=== PATIENT | male | born 1955 | race Caucasian/White ===

== ENCOUNTER 2017-11-13 13:20 | Emergency (ER) | payer BC ==
--- NOTE | 2017-11-13 13:31 | PDOC ---
History of Present Illness - General Stated Complaint: PAIN Time Seen by Provider: 11/13/17 13:25 History Source: Patient - History of Present Illness Initial Comments: 11/13/17 13:41 61 y.o. male with a PMH of nephrolithiasis and chronic back pain presents with acute onset of L sided groin pain. Patient notes he went to urinate this morning @ 7 a.m. and felt a sharp pain in his L groin. Pain is constant, 10/10 , sharp and cramping and radiates to his groin. Patient notes he has been non- adherent to his Flomax medication not taking it daily. Denies any fevers/chills , hematuria/dysuria, diarrhea/constipation or scrotal/penile pain. Tolerating PO intake. Allergy: Erythromycin Surgical: B/L Hip Replacement Social: denies cigarettes, denies alcohol, denies recreational drugs PMD: Dr. Braswell Past History - Past Medical History Allergies/Adverse Reactions: Allergies Allergy/AdvReac Type Severity Reaction Status Date / Time azithromycin [From Zithromax] AdvReac Severe Nausea Verified 11/13/17 13:34 Home Medications: Ambulatory Orders Ibuprofen [Motrin -] 600 mg PO TID PRN #21 tablet 10/24/17 Morphine *Sr* [Ms Contin -] 45 mg PO Q8H 10/24/17 Oxycodone HCl 5 mg PO TID 10/24/17 Oxycodone HCl/Acetaminophen [Percocet 5-325 mg Tablet] 1 tab PO Q6H PRN #10 tablet MDD 4 tabs a day 10/24/17 Tamsulosin HCl [Flomax] 0.4 mg PO DAILY #14 cap.er.24h 10/24/17 COPD: No - Suicide/Smoking/Psychosocial Hx Smoking History: Never smoked Hx Alcohol Use: No Drug/Substance Use Hx: No Review of Systems - Review of Systems Constitutional: No: Chills, Fever HEENTM: No: Recent change in vision Respiratory: No: Cough, Shortness of Breath Cardiac (ROS): No: Chest Pain, Lightheadedness, Palpitations, Syncope ABD/GI: No: Constipated, Diarrhea, Nausea *Physical Exam - Physical Exam Comments: 11/13/17 13:58 GENERAL: Awake, alert, and fully oriented HEAD: No signs of trauma EYES: PERRLA, EOMI, sclera anicteric, conjunctiva clear ENT: Auricles normal inspection, hearing grossly normal, nares patent, oropharynx clear without exudates. Moist mucosa NECK: Nontender, no stepoffs, Normal ROM, supple, no lymphadenopathy, JVD, or masses LUNGS: Breath sounds equal, clear to auscultation bilaterally. No wheezes, and no crackles HEART: Regular rate and rhythm, normal S1 and S2, no murmurs, rubs or gallops ABDOMEN: LLQ/groin TTP, soft, normoactive bowel sounds. No guarding, no rebound. No masses EXTREMITIES: Normal range of motion, no edema. No clubbing or cyanosis. No cords, erythema, or tenderness NEUROLOGICAL: Cranial nerves II through XII intact. 5/5 strength and sensation in all extremities, Normal speech, normal gait, normal cerebellar function SKIN: Warm, Dry, normal turgor, no rashes or lesions noted. ED Treatment Course - LABORATORY CBC & Chemistry Diagram: 11/13/17 13:50 11/13/17 13:50 Medical Decision Making - Medical Decision Making 11/13/17 13:59 61 year old male with a PMH of nephrolithiasis presents c/o acute onset of LLQ groin pain. Physical exam significant for LLQ TPP and no testicular swelling, non-tender epididymis, no erythema. Will obtain CTA to r/o nephrolithiasis + bedside U/S 11/13/17 16:36 No leukocytosis. Urine clean. Bedside U/S shows L sided hydronephrosis 11/13/17 17:51 CT scan show 3 mm stone in renal pelvis; stone @ uretopelvic junction on previous CT not visualized. Patient and patient's @ bedside counseled extensively on return precautions and importance of follow up with urology. Patient discharged home. I discussed the physical exam findings, ancillary test results and final diagnoses with the patient. I answered all of the patient's questions. The patient was satisfied with the care received and felt comfortable with the discharge plan and treatment plan. The patient will return to the Emergency Department with any new, persistent or worsening symptoms. *DC/Admit/Observation/Transfer Diagnosis at time of Disposition: Hydronephrosis - Discharge Dispostion Disposition: HOME Condition at time of disposition: Good Admit: No - Referrals Referrals: Ronna Braswell MD [Primary Care Provider] - Cody Zarate MD [Staff Physician] - - Patient Instructions Additional Instructions: Follow up with your primary care doctor in the next 48 hours. Make an appointment with urology (referral provided) for evaluation of your continued kidney stones. Take your medications including Flomax daily as prescribed. Return to the Emergency Department for any new/worsening/concerning symptoms. - Post Discharge Activity
--- NOTE | 2017-11-13 13:32 | PDOC ---
Attending Attestation - Resident Resident Name: AudreySusanne - ED Attending Attestation I have performed the following: I have examined & evaluated the patient, The case was reviewed & discussed with the resident, I agree w/resident's findings & plan, Exceptions are as noted - HPI HPI: 61 yo M with history nephrolithiasis and chronic back pain presents with L abd pain radiating to groin. He has history of recent kidney stone on the L side, recently evaluated in ED for the same. He has history of kidney stone on the left side in the past, on the same side. Denies nausea, vomiting, fever, chills. He takes multiple opioid medications chronically for his back pain. - Physicial Exam PE: GENERAL: Awake, alert, and fully oriented, in no acute distress. Appears uncomfortable. HEAD: No signs of trauma EYES: PERRLA, EOMI, sclera anicteric, conjunctiva clear ENT: Auricles normal inspection, hearing grossly normal, nares patent, oropharynx clear without exudates. Moist mucosa NECK: Normal ROM, supple, no lymphadenopathy, JVD, or masses LUNGS: Breath sounds equal, clear to auscultation bilaterally. No wheezes, and no crackles HEART: Regular rate and rhythm, normal S1 and S2, no murmurs, rubs or gallops ABDOMEN: Soft, +L side tenderness, normoactive bowel sounds. No guarding, no rebound. No masses. No CVAT. EXTREMITIES: Normal range of motion, no edema. No clubbing or cyanosis. No cords, erythema, or tenderness NEUROLOGICAL: Cranial nerves II through XII grossly intact. Normal speech, normal gait SKIN: Warm, Dry, normal turgor, no rashes or lesions noted. - Medical Decision Making 11/13/17 14:29 Pt with history prior stone. He has been taking flomax on a prn basis (it seems that he was taking it like a prn pain medication- will clarify with him that it is a daily medication). Will obtain renal sono. He received 10 mg morphine prior to arrival, then toradol in ED. Will cont to monitor.
[2017-11-13 13:35] VITALS: BMI 43.6
[2017-11-13] MEDS ORDERED: morphine CARPU-JECT 4 MG/1 ML DISP.SYRIN IVPUSH ONE (13:38)
[2017-11-13] MEDS ORDERED: KETOROLAC TROMETHAMINE 30 MG/1 ML VIAL IVPUSH ONE (13:47)
[2017-11-13] MEDS ORDERED: KETOROLAC TROMETHAMINE 30 MG/1 ML VIAL ONE (13:52)
[2017-11-13 14:01] LABS: BASO % 0.3 % (0-2.0); EOS % 0.1 % (0-4.5); HEMATOCRIT 40.3 % (35.4-49); HEMOGLOBIN 13.8 GM/dL (11.7-16.9); LYMPH % 4.3 % (8-40); MCH 29.2 pg (25.7-33.7); MCHC 34.1 g/dl (32.0-35.9); MEAN CELL VOLUME 85.6 fl (80-96); MEAN PLT VOLUME 7.8 fl (7.5-11.1); MONO % 4.6 % (3.8-10.2); NEUT % 90.7 % (42.8-82.8); PLATELET COUNT 185 K/MM3 (134-434); RBC 4.71 M/mm3 (4.00-5.60); RDW 13.9 % (11.9-15.9)
[2017-11-13 14:14] LABS: URINE APPEARANCE CLEAR; URINE BILIRUBIN NEGATIVE (<2.0 mg/dL); URINE BLOOD 1+ (NEGATIVE); URINE COLOR YELLOW; URINE GLUCOSE (UA) NEGATIVE (NEGATIVE); URINE KETONE 1+ (NEGATIVE); URINE LEUK ESTERASE NEGATIVE (NEGATIVE); URINE NITRITE NEGATIVE (NEGATIVE); URINE PROTEIN NEGATIVE (NEGATIVE); URINE UROBILINOGEN NEGATIVE mg/dL (0.2-1.0)
[2017-11-13 14:25] LABS: ALBUMIN 4.3 g/dl (3.4-5.0); ANION GAP 8 (8-16); BLOOD UREA NITROGEN 18 mg/dL (7-18); CALCIUM 9.1 mg/dL (8.5-10.1); CHLORIDE 106 mmol/L (98-107); CO2 28 mmol/L (21-32); GLUCOSE,RANDOM 104 mg/dL (74-106); POTASSIUM 4.9 mmol/L (3.5-5.1); SGOT/AST 18 U/L (15-37); SGPT/ALT 13 U/L (12-78); SODIUM 142 mmol/L (136-145)
[2017-11-13 14:26] LABS: ALK PHOS 120 U/L (45-117); BILIRUBIN,TOTAL 1.4 mg/dL (0.2-1.0); TOT PROT 7.5 g/dl (6.4-8.2)
[2017-11-13 14:28] LABS: URINE HYALINE CAST 5 /lpf; URINE MUCUS RARE
[2017-11-13 18:09] VITALS: BP 149/81; PULSE 61; TEMP 98.1
== END 2017-11-13 18:08 | disposition home or self-care (01) ==
LOC: JER 13:20
PROC: 3E033NZ Introduction of Analgesics, Hypnotics, Sedatives into Peripheral Vein, Percutaneous Approach (ICD-10-PCS; principal; 2017-11-13)
PROC: 3E0333Z Introduction of Anti-inflammatory into Peripheral Vein, Percutaneous Approach (ICD-10-PCS; 2017-11-13)
DX: N13.2 Hydronephrosis with renal and ureteral calculous obstruction (principal); Z87.442 Personal history of urinary calculi; Z96.643 Presence of artificial hip joint, bilateral; Z88.1 Allergy status to other antibiotic agents
CPT/HCPCS: 36415; 74176; 80053; 81003; 81015; 85025; 87086; 99282-25

== ENCOUNTER 2018-07-29 10:04 | Inpatient (IN) | payer BC, OTHER ==
[2018-07-29 10:19] VITALS: BMI 42.0
[2018-07-29] MEDS ORDERED: HYDROmorphone HCL CARPU-JECT 2 MG/1 ML DISP.SYRIN IVPUSH ONE ×2 (10:32→12:57)
[2018-07-29] MEDS: SODIUM CHLORIDE 1,000 ML IV SCH ×2 (10:36→23:38)
[2018-07-29] MEDS ORDERED: HYDROmorphone HCl 2 MG/ML VIAL ONE ×2 (10:47→13:21)
[2018-07-29 11:11] LABS: BASO % 0.6 % (0-2.0); EOS % 0.4 % (0-4.5); HEMATOCRIT 38.7 % (35.4-49); HEMOGLOBIN 13.9 GM/dL (11.7-16.9); LYMPH % 7.8 % (8-40); MCH 30.2 pg (25.7-33.7); MCHC 35.8 g/dl (32.0-35.9); MEAN CELL VOLUME 84.5 fl (80-96); MEAN PLT VOLUME 8.1 fl (7.5-11.1); MONO % 4.8 % (3.8-10.2); NEUT % 86.4 % (42.8-82.8); PLATELET COUNT 188 K/MM3 (134-434); RBC 4.58 M/mm3 (4.00-5.60); RDW 13.9 % (11.9-15.9); WHITE BLOOD COUNT 7.8 K/mm3 (4.0-10.0)
--- NOTE | 2018-07-29 11:20 | PDOC ---
History of Present Illness - General Chief Complaint: Pain, Acute Stated Complaint: PAIN Time Seen by Provider: 07/29/18 10:12 History Source: Patient, Family Exam Limitations: No Limitations - History of Present Illness Initial Comments: 07/29/18 11:16 62 y/o male presents to ED with his c/o left flank pain. Pt says " I have another kidney stone" Pain in left flank radiating around to left side began last night and is getting worse. Pt denies fever, nausea,vomiting, hemaruria but feels like he cannot get his urine out.PT appears uncomfortable but is non toxic appearing. Pt with h/o chronic back pain and hip pain on mso4 and oxycodone daily but says he did not take his pain meds today 07/29/18 11:19 Timing/Duration: 4-6 hours, getting worse Past History - Past Medical History Allergies/Adverse Reactions: Allergies Allergy/AdvReac Type Severity Reaction Status Date / Time azithromycin [From Zithromax] AdvReac Severe Nausea Verified 07/29/18 10:19 Home Medications: Ambulatory Orders Ibuprofen [Motrin -] 600 mg PO TID PRN #21 tablet 10/24/17 Morphine *Sr* [Ms Contin -] 30 mg PO BID 10/24/17 Oxycodone HCl 5 mg PO BID 10/24/17 COPD: No CHF: No - Suicide/Smoking/Psychosocial Hx Smoking History: Never smoked Have you smoked in the past 12 months: No Information on smoking cessation initiated: No Hx Alcohol Use: No Drug/Substance Use Hx: No Review of Systems - Review of Systems Constitutional: No: Fever, Malaise Respiratory: No: Shortness of Breath, SOB at Rest, Productive cough Cardiac (ROS): No: Chest Pain, Chest Tightness ABD/GI: Yes: Other (left side abdominal pain radiating rom back) : No: Dysuria, Hematuria, Incontinence Neurological: No: Headache, Ataxia, Dizziness *Physical Exam - Vital Signs Last Vital Signs Temp Pulse Resp BP Pulse Ox 97.6 F 63 16 149/81 100 07/29/18 10:06 07/29/18 10:06 07/29/18 10:06 07/29/18 10:06 07/29/18 10:06 - Physical Exam General Appearance: Yes: Nourished, Mild Distress, Obese HEENT: positive: EOMI, Normal Voice Neck: positive: Supple Respiratory/Chest: positive: Lungs Clear, Normal Breath Sounds. negative: Respiratory Distress Cardiovascular: positive: Regular Rate, S1, S2. 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 NML intact, Fully Oriented, Alert Moderate Sedation - Procedure Monitoring Vital Signs: Procedure Monitoring Vital Signs Temperature 97.6 F 07/29/18 10:06 Pulse Rate 63 07/29/18 10:06 Respiratory Rate 16 07/29/18 10:06 Blood Pressure 149/81 07/29/18 10:06 O2 Sat by Pulse Oximetry (%) 100 07/29/18 10:06 ED Treatment Course - LABORATORY CBC & Chemistry Diagram: 07/29/18 10:39 07/29/18 10:39 - RADIOLOGY Radiology Studies Ordered: Category Date Time Status SPIRAL- RENAL-STONE CT [CT] Stat CT Scan 07/29/18 10:33 Ordered - Medications Given in the ED: ED Medications Discontinued Medications Generic Name Dose Route Start Last Admin Trade Name Freq PRN Reason Stop Dose Admin Hydromorphone HCl 1 mg 07/29/18 10:32 07/29/18 10:49 Dilaudid Injection - IVPUSH 07/29/18 10:33 1 mg ONCE ONE Administration Medical Decision Making - Medical Decision Making 07/29/18 11:22 62 y/o male presents to ed c/o left flank pain started last night. Pt says I have another kidney stone, 3rd time this year. Pt has not followed up with urology normally passes stone on his own. Dilaudid 1mg ivp for pain, ns at 75 cc /hr, cbc, cmp, ua, urine, renal ct to r/o left kidney stone *DC/Admit/Observation/Transfer Diagnosis at time of Disposition: Renal colic on left side, Nephrolithiasis - Discharge Dispostion Condition at time of disposition: Stable Decision to Admit order: Yes - Referrals Referrals: Ronna Braswell MD [Primary Care Provider] - - Patient Instructions - Post Discharge Activity
[2018-07-29 11:39] LABS: ALBUMIN 3.7 g/dl (3.4-5.0); ALK PHOS 119 U/L (45-117); ANION GAP 8 MMOL/L (8-16); BLOOD UREA NITROGEN 19 mg/dL (7-18); CALCIUM 8.1 mg/dL (8.5-10.1); CHLORIDE 106 mmol/L (98-107); CO2 24 mmol/L (21-32); CREATININE 0.9 mg/dL (0.55-1.3); GLUCOSE,RANDOM 93 mg/dL (74-106); POTASSIUM 4.1 mmol/L (3.5-5.1); SGOT/AST 15 U/L (15-37); SGPT/ALT 19 U/L (13-61); SODIUM 139 mmol/L (136-145); TOT PROT 6.9 g/dl (6.4-8.2)
[2018-07-29 11:51] LABS: URINE APPEARANCE CLEAR; URINE BILIRUBIN NEGATIVE (<2.0 mg/dL); URINE COLOR LTYELLOW; URINE GLUCOSE (UA) NEGATIVE (NEGATIVE); URINE KETONE NEGATIVE (NEGATIVE); URINE LEUK ESTERASE NEGATIVE (NEGATIVE); URINE NITRITE NEGATIVE (NEGATIVE); URINE PROTEIN NEGATIVE (NEGATIVE); URINE UROBILINOGEN NEGATIVE mg/dL (0.2-1.0)
[2018-07-29 11:58] LABS: EPI CELLS RARE /HPF (FEW); URINE HYALINE CAST 3 /lpf; URINE MUCUS MANY
[2018-07-29] MEDS ORDERED: HYDROmorphone HCL CARPU-JECT 2 MG/1 ML DISP.SYRIN IVPB PRN (15:32)
--- NOTE | 2018-07-29 15:39 | HP ---
Admitting History and Physical - Primary Care Physician PCP: Ronna Braswell - Admission Chief Complaint: left lower quadrant pain History of Present Illness: increased lower back pain for past 2 weeks this am developed severe left lower quadrant pain, needed er evaluation 2 prior episodes of renal colic earlier this year resolved without intervention History Source: Patient Limitations to Obtaining History: No Limitations - Past Medical History Cardiovascular: Yes: HTN Musculoskeletal: Yes: Chronic low back pain Endocrine: Yes: Other (Obesity) - Past Surgical History Past Surgical History: Yes: Joint Replacement (right hip replacement with revision, left hip replacement), Tonsillectomy - Smoking History Smoking history: Never smoked Have you smoked in the past 12 months: No - Alcohol/Substance Use Hx Alcohol Use: No - Social History Usual Living Arrangement: Yes: With Spouse ADL: Independent History of Recent Travel: No Home Medications - Allergies Allergies/Adverse Reactions: Allergies Allergy/AdvReac Type Severity Reaction Status Date / Time azithromycin [From Zithromax] AdvReac Severe Nausea Verified 07/29/18 10:19 - Home Medications Home Medications: Ambulatory Orders Ibuprofen [Motrin -] 600 mg PO TID PRN #21 tablet 10/24/17 Morphine *Sr* [Ms Contin -] 30 mg PO BID 10/24/17 Oxycodone HCl 5 mg PO BID 10/24/17 Family Disease History - Family Disease History Family History: Unremarkable Review of Systems - Review of Systems Constitutional: denies: Chills, Fever, Loss of Appetite, Weakness Eyes: reports: No Symptoms HENT: reports: No Symptoms Neck: reports: No Symptoms Cardiovascular: reports: No Symptoms Respiratory: reports: No Symptoms Gastrointestinal: reports: No Symptoms Genitourinary: reports: Flank Pain, Other (feels occasional urgency without urination). denies: Burning, Discharge, Dysuria, Hematuria, Incontinence Musculoskeletal: reports: Back Pain Integumentary: reports: No Symptoms Neurological: reports: No Symptoms Endocrine: reports: No Symptoms Physical Examination Vital Signs: Vital Signs Temperature 98.4 F 07/29/18 15:03 Pulse Rate 56 L 07/29/18 15:03 Respiratory Rate 18 07/29/18 15:03 Blood Pressure 182/106 H 07/29/18 15:03 O2 Sat by Pulse Oximetry (%) 95 07/29/18 15:03 Constitutional: Yes: Well Nourished, No Distress, Obese Eyes: Yes: Conjunctiva Clear HENT: Yes: Atraumatic, Normocephalic Neck: Yes: Trachea Midline Cardiovascular: Yes: Regular Rate and Rhythm Respiratory: Yes: CTA Bilaterally Gastrointestinal: Yes: Normal Bowel Sounds, Abdomen, Obese, Tenderness (LLQ-not severe right after pain medication) Neurological: Yes: WNL Psychiatric: Yes: WNL Labs: CBC, BMP 07/29/18 10:39 07/29/18 10:39 Imaging - Results Cat Scan: Report Reviewed (6 mm UVJ calculus with mild hydronephrosis on left) Problem List - Problems (1) Obesity due to excess calories Code(s): E66.09 - OTHER OBESITY DUE TO EXCESS CALORIES Qualifiers: Obesity classification: adult class 3 (BMI >= 40) Body mass index: BMI 40.0 -44.9 (2) Chronic pain disorder Code(s): G89.4 - CHRONIC PAIN SYNDROME (3) Hypertension Code(s): I10 - ESSENTIAL (PRIMARY) HYPERTENSION Qualifiers: Hypertension type: essential hypertension Qualified Code(s): I10 - Essential (primary) hypertension (4) Nephrolithiasis Code(s): N20.0 - CALCULUS OF KIDNEY (5) Renal colic on left side Code(s): N23 - UNSPECIFIED RENAL COLIC (6) Hydronephrosis Code(s): N13.30 - UNSPECIFIED HYDRONEPHROSIS Qualifiers: Hydronephrosis type: with ureteropelvic junction obstruction 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
[2018-07-29] MEDS ORDERED: amLODIPine BESYLATE 5 MG TABLET (FP) ONE (15:43)
[2018-07-29] MEDS ORDERED: SODIUM CHLORIDE 1,000 ML IV SCH (15:45)
[2018-07-29] MEDS: amLODIPine BESYLATE 10 MG TABLET (FP) PO SCH (15:54)
[2018-07-29] MEDS ORDERED: HYDROmorphone HCl 2 MG/ML VIAL IVPB PRN (17:50)
[2018-07-29] MEDS: morphine SO4 SUSTAINED ACTING 30 MG TABLET.SA PO SCH (21:31)
[2018-07-29] MEDS ORDERED: GABAPENTIN 100 MG CAPSULE (FP) PO SCH (22:00)
[2018-07-30 05:37] VITALS: TEMP 97.9
[2018-07-30] MEDS ORDERED: TAMSULOSIN HCL 0.4 MG CAP PO SCH ×2 (08:30→10:00)
[2018-07-30] MEDS: amLODIPine BESYLATE 10 MG TABLET (FP) PO SCH (09:30)
[2018-07-30] MEDS: morphine SO4 SUSTAINED ACTING 30 MG TABLET.SA PO SCH (09:30)
[2018-07-30] MEDS: SODIUM CHLORIDE 1,000 ML IV SCH (09:31)
--- NOTE | 2018-07-30 09:36 | PN ---
Progress Note (short form) - Note Progress Note: no new complaints urine clear no stone noted on straining pain is ok with medication Vital Signs Period Temp Pulse Resp BP Sys/Rangel Pulse Ox Last 24 Hr 97.6 F-98.4 F 56-70 16-20 134-182/54-106 95-100 S1S2 RRR Lungs cta abd soft NT +BS, no CVA tenderness no edema IMP obstructing left UVJ nephrolithiasis HTN Obesity Plan iv hydration pain mgmgnt urology consult appreciated Problem List - Problems (1) Obesity due to excess calories Code(s): E66.09 - OTHER OBESITY DUE TO EXCESS CALORIES Qualifiers: Obesity classification: adult class 3 (BMI >= 40) Body mass index: BMI 40.0 -44.9 (2) Chronic pain disorder Code(s): G89.4 - CHRONIC PAIN SYNDROME (3) Hypertension Code(s): I10 - ESSENTIAL (PRIMARY) HYPERTENSION Qualifiers: Hypertension type: essential hypertension Qualified Code(s): I10 - Essential (primary) hypertension (4) Nephrolithiasis Code(s): N20.0 - CALCULUS OF KIDNEY (5) Renal colic on left side Code(s): N23 - UNSPECIFIED RENAL COLIC (6) Hydronephrosis Code(s): N13.30 - UNSPECIFIED HYDRONEPHROSIS Qualifiers: Hydronephrosis type: with ureteropelvic junction obstruction Qualified 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
--- NOTE | 2018-07-30 10:13 | CON.GU ---
Consult Consult Specialty:: Referred by:: carroll Reason for Consultation:: 6mm UVJ stone, hydro - History of Present Illness Chief Complaint: 6mm UVJ stone, hydro History of Present Illness: 62 year old male with his third episode of renal colic this year. CT scan shows a 6mm UVJ stone and a 4mm renal calculus. His pain is improved this morning and he is voiding much better. No fevers or signs of sepsis - History Source History Provided By: Patient, Medical Record Limitations to Obtaining History: No Limitations - Past Medical History Cardio/Vascular: Yes: HTN Renal/: Yes: Renal Calculi Musculoskeletal: Yes: Chronic low back pain Endocrine: Yes: Other (Obesity) - Past Surgical History Past Surgical History: Yes: Joint Replacement (right hip replacement with revision, left hip replacement), Tonsillectomy - Alcohol/Substance Use Hx Alcohol Use: No - Smoking History Smoking history: Never smoked Have you smoked in the past 12 months: No - Social History ADL: Independent History of Recent Travel: No Home Medications - Allergies Allergies/Adverse Reactions: Allergies Allergy/AdvReac Type Severity Reaction Status Date / Time azithromycin [From Zithromax] AdvReac Severe Nausea Verified 07/29/18 10:19 - Home Medications Home Medications: Ambulatory Orders Ibuprofen [Motrin -] 600 mg PO TID PRN #21 tablet 10/24/17 Morphine *Sr* [Ms Contin -] 30 mg PO BID 10/24/17 Oxycodone HCl 5 mg PO BID 10/24/17 Gabapentin [Neurontin -] 300 mg PO HS 07/29/18 Tamsulosin HCl [Flomax] 0.4 mg PO DAILY 07/29/18 Tamsulosin HCl [Flomax] 0.4 mg PO HS #30 cap.er.24h 07/30/18 Review of Systems - Review of Systems Constitutional: denies: Chills, Fever Genitourinary: reports: Flank Pain, Frequency Physical Exam- Vital Signs: Vital Signs Temperature 97.9 F 07/30/18 05:00 Pulse Rate 58 L 07/30/18 05:00 Respiratory Rate 20 07/29/18 17:44 Blood Pressure 142/54 L 07/30/18 05:00 O2 Sat by Pulse Oximetry (%) 96 07/29/18 22:00 Constitutional: Yes: Well Nourished, No Distress, Calm Gastrointestinal: Yes: WNL, Normal Bowel Sounds Renal/: No: Bladder Distention, CVA Tenderness - Left, CVA Tenderness - Right , Herrera Present, Hematuria Labs: CBC, BMP 07/29/18 10:39 07/29/18 10:39 Imaging - Results Cat Scan: Report Reviewed Problem List - Problems (1) Calculus of ureter Assessment/Plan: pain is resolved. Stone has a high likelihood of self passage. continue hydration and flomax. can be discharged. Code(s): N20.1 - CALCULUS OF URETER (2) Renal colic on left side Code(s): N23 - UNSPECIFIED RENAL COLIC (3) Hydronephrosis Code(s): N13.30 - UNSPECIFIED HYDRONEPHROSIS Qualifiers: Hydronephrosis type: with ureteropelvic junction obstruction Qualified 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
[2018-07-30 11:59] VITALS: BP 160/88; PULSE 65
--- NOTE | 2018-07-31 08:22 | DS ---
Physical Examination Vital Signs: Vital Signs Temperature 97.9 F 07/30/18 08:00 Pulse Rate 65 07/30/18 08:00 Respiratory Rate 20 07/30/18 08:00 Blood Pressure 160/88 07/30/18 08:00 O2 Sat by Pulse Oximetry (%) 96 07/30/18 08:00 Constitutional: Yes: No Distress, Calm, Obese Cardiovascular: Yes: Regular Rate and Rhythm Respiratory: Yes: CTA Bilaterally Gastrointestinal: Yes: Normal Bowel Sounds, Soft, Abdomen, Obese. No: Tenderness Extremities: Yes: WNL Edema: No Labs: CBC, BMP 07/29/18 10:39 07/29/18 10:39 Discharge Summary Reason For Visit: CALCULUS OF KIDNEY Hospital Course: admitted for left UVJ obstructing calculus, pain has been resolved, voiding much better, has been seen by urologist. Medically stable to go home and follow up closely as outpt with urology. continue flomax and continue to strain urine Condition: Stable - Instructions Diet, Activity, Other Instructions: regular diet. hydration. lemon juice and water. flomax - FOLLOW UP WITH YOUR PMD THIS WEEK - FOLLOW UP WITH UROLOGY INSTRUCTED Referrals: Ronna Braswell MD [Primary Care Provider] - Cody Zarate MD [Staff Physician] - 2 Weeks (UROLOGY) Disposition: HOME - Home Medications Comprehensive Discharge Medication List: Ambulatory Orders Morphine *Sr* [Ms Contin -] 30 mg PO BID 10/24/17 Oxycodone HCl 5 mg PO BID 10/24/17 Gabapentin [Neurontin -] 300 mg PO HS 07/29/18 Tamsulosin HCl [Flomax] 0.4 mg PO DAILY 07/29/18 Amlodipine Besylate [Norvasc -] 10 mg PO DAILY #30 tablet 07/30/18
== END 2018-07-30 14:32 | disposition home or self-care (01) | DRG 694 ==
LOC: JER 10:04 → JERBED 13:22 → J6S 17:29
PROVIDERS: ADMIT Internal Medicine; ATTEND Internal Medicine
DX: N13.2 Hydronephrosis with renal and ureteral calculous obstruction (principal); Z68.41 Body mass index [BMI] 40.0-44.9, adult; I10 Essential (primary) hypertension; M54.5 Low back pain; E66.01 Morbid (severe) obesity due to excess calories; Z96.643 Presence of artificial hip joint, bilateral; G89.4 Chronic pain syndrome
CPT/HCPCS: 36415; 74176; 80053; 81003; 81015; 85025; 99283-25; J7030

== ENCOUNTER 2018-08-01 18:05 | Emergency (ER) | payer BC, OTHER ==
[2018-08-01 18:28] VITALS: PULSE 96; BMI 41.5
[2018-08-01] MEDS ORDERED: SODIUM CHLORIDE 1,000 ML IV STA (18:28)
[2018-08-01] MEDS ORDERED: KETOROLAC TROMETHAMINE 30 MG/1 ML VIAL IVPUSH ONE (18:28)
--- NOTE | 2018-08-01 18:28 | PDOC ---
Rapid Medical Evaluation Time Seen by Provider: 08/01/18 18:25 Medical Evaluation: Allergies Allergy/AdvReac Type Severity Reaction Status Date / Time azithromycin [From Zithromax] AdvReac Severe Nausea Verified 07/29/18 10:19 08/01/18 18:25 The patient presents with a chief complaint of: left lower quadr pain, here recently, pending lithotripsy and stent by [employer], unable to void since 1 -2 pm now dribbling I have performed a brief in-person evaluation of this patient Pertinent physical exam findings: vss, mod bladder distention I have ordered the following: labs, ua, u cx, ivf, jj, toradol, kidney / bladder u/s The patient will proceed to the ED for further evaluation. Discharge Disposition - Diagnosis Renal colic on left side - Referrals Referrals: Ronna Braswell MD [Primary Care Provider] - - Patient Instructions - Post Discharge Activity
[2018-08-01] MEDS ORDERED: KETOROLAC TROMETHAMINE 30 MG/1 ML VIAL ONE (19:18)
[2018-08-01 19:38] LABS: BASO % 0.3 % (0-2.0); HEMATOCRIT 42.2 % (35.4-49); LYMPH % 6.1 % (8-40); MCH 29.9 pg (25.7-33.7); MCHC 35.6 g/dl (32.0-35.9); MEAN CELL VOLUME 84.1 fl (80-96); MEAN PLT VOLUME 8.1 fl (7.5-11.1); MONO % 5.3 % (3.8-10.2); NEUT % 88.3 % (42.8-82.8); PLATELET COUNT 217 K/MM3 (134-434); RBC 5.02 M/mm3 (4.00-5.60); WHITE BLOOD COUNT 11.3 K/mm3 (4.0-10.0)
[2018-08-01] MEDS ORDERED: HYDROmorphone HCL CARPU-JECT 2 MG/1 ML DISP.SYRIN IVPUSH ONE (19:38)
[2018-08-01] MEDS ORDERED: HYDROmorphone HCl 2 MG/ML VIAL ONE (19:40)
[2018-08-01 19:54] LABS: URINE APPEARANCE CLEAR; URINE BILIRUBIN NEGATIVE (<2.0 mg/dL); URINE COLOR YELLOW; URINE GLUCOSE (UA) NEGATIVE (NEGATIVE); URINE KETONE 2+ (NEGATIVE); URINE LEUK ESTERASE NEGATIVE (NEGATIVE); URINE NITRITE NEGATIVE (NEGATIVE); URINE PROTEIN 1+ (NEGATIVE); URINE UROBILINOGEN NEGATIVE mg/dL (0.2-1.0)
[2018-08-01 19:55] LABS: EPI CELLS RARE /HPF (FEW); URINE MUCUS MODERATE
[2018-08-01 19:57] LABS: URINE HYALINE CAST 2 /lpf
[2018-08-01 20:09] VITALS: BP 158/85; TEMP 98
[2018-08-01 21:18] LABS: ALBUMIN 3.8 g/dl (3.4-5.0); ALK PHOS 114 U/L (45-117); ANION GAP 6 MMOL/L (8-16); BILIRUBIN,TOTAL 1.4 mg/dL (0.2-1); BLOOD UREA NITROGEN 23 mg/dL (7-18); CALCIUM 7.9 mg/dL (8.5-10.1); CHLORIDE 106 mmol/L (98-107); CO2 26 mmol/L (21-32); CREATININE 1.2 mg/dL (0.55-1.3); GLUCOSE,RANDOM 104 mg/dL (74-106); POTASSIUM 4.2 mmol/L (3.5-5.1); SGOT/AST 18 U/L (15-37); SGPT/ALT 18 U/L (13-61); SODIUM 138 mmol/L (136-145); TOT PROT 6.8 g/dl (6.4-8.2)
--- NOTE | 2018-08-01 21:50 | PDOC ---
History of Present Illness - General Chief Complaint: Pain, Acute Stated Complaint: KIDNEY STONES Time Seen by Provider: 08/01/18 18:25 History Source: Patient Exam Limitations: No Limitations Past History - Past Medical History Allergies/Adverse Reactions: Allergies Allergy/AdvReac Type Severity Reaction Status Date / Time azithromycin [From Zithromax] AdvReac Severe Nausea Verified 08/01/18 18:26 Home Medications: Ambulatory Orders Morphine *Sr* [Ms Contin -] 30 mg PO BID 10/24/17 Oxycodone HCl 5 mg PO BID 10/24/17 Gabapentin [Neurontin -] 300 mg PO HS 07/29/18 Tamsulosin HCl [Flomax] 0.4 mg PO DAILY 07/29/18 Amlodipine Besylate [Norvasc -] 10 mg PO DAILY #30 tablet 07/30/18 Anemia: No Asthma: No Cancer: No Cardiac Disorders: No CVA: No COPD: No CHF: No Dementia: No Diabetes: No GI Disorders: No Disorders: Yes HTN: No Hypercholesterolemia: No Kidney Stones: Yes Liver Disease: No Seizures: No Thyroid Disease: No - Surgical History Abdominal Surgery: No Appendectomy: No Cardiac Surgery: No Cholecystectomy: No Lung Surgery: No Neurologic Surgery: No Orthopedic Surgery: Yes (2 HIP REPLACEMTS, 1 REVISION) - Suicide/Smoking/Psychosocial Hx Smoking History: Unknown if ever smoked Have you smoked in the past 12 months: No Information on smoking cessation initiated: No Hx Alcohol Use: No Drug/Substance Use Hx: No Substance Use Type: None Hx Substance Use Treatment: No *Physical Exam - Vital Signs Last Vital Signs Temp Pulse Resp BP Pulse Ox 98.0 F 96 H 20 158/85 100 08/01/18 19:05 08/01/18 19:05 08/01/18 19:05 08/01/18 19:05 08/01/18 19:05 - Physical Exam General Appearance: Yes: Apparent Distress (Due to pain) Respiratory/Chest: positive: Lungs Clear, Normal Breath Sounds. negative: Respiratory Distress Cardiovascular: positive: Regular Rhythm, Regular Rate, S1, S2. negative: Murmur Gastrointestinal/Abdominal: positive: Normal Bowel Sounds, Tender (Along LLQ). negative: Distended, Guarding, Rebound, Mass Musculoskeletal: negative: CVA Tenderness Integumentary: positive: Normal Color Neurologic: positive: Fully Oriented, Alert, Normal Mood/Affect Moderate Sedation - Procedure Monitoring Vital Signs: Procedure Monitoring Vital Signs Temperature 98.0 F 08/01/18 19:05 Pulse Rate 96 H 08/01/18 19:05 Respiratory Rate 20 08/01/18 19:05 Blood Pressure 158/85 08/01/18 19:05 O2 Sat by Pulse Oximetry (%) 100 08/01/18 19:05 ED Treatment Course - LABORATORY CBC & Chemistry Diagram: 08/01/18 19:30 08/01/18 20:40 - ADDITIONAL ORDERS Additional order review: Laboratory Results 08/01/18 08/01/18 08/01/18 20:40 19:30 18:50 Sodium 138 Cancelled Potassium 4.2 Cancelled Chloride 106 Cancelled Carbon Dioxide 26 Cancelled Anion Gap 6 L Cancelled BUN 23 H Cancelled Creatinine 1.2 Cancelled Creat Clearance w eGFR > 60 Cancelled Random Glucose 104 Cancelled Calcium 7.9 L Cancelled Total Bilirubin 1.4 H Cancelled AST 18 Cancelled ALT 18 Cancelled Alkaline Phosphatase 114 Cancelled Total Protein 6.8 Cancelled Albumin 3.8 Cancelled Urine Color Yellow Urine Appearance Clear Urine pH 5.0 Ur Specific [place] 1.023 Urine Protein 1+ H Urine Glucose (UA) Negative Urine Ketones 2+ H Urine Blood 2+ H Urine Nitrite Negative Urine Bilirubin Negative Urine Urobilinogen Negative Ur Leukocyte Esterase Negative Urine WBC (Auto) 1 Urine RBC (Auto) 32 Ur Epithelial Cells Rare Hyaline Casts 2 Urine Mucus Moderate 08/01/18 19:30 RBC 5.02 MCV 84.1 MCHC 35.6 RDW 14.0 MPV 8.1 Neutrophils % 88.3 H Lymphocytes % 6.1 L D Monocytes % 5.3 Eosinophils % 0.0 D Basophils % 0.3 - Medications Given in the ED: ED Medications Discontinued Medications Generic Name Dose Route Start Last Admin Trade Name Freq PRN Reason Stop Dose Admin Hydromorphone HCl 2 mg 08/01/18 19:38 08/01/18 19:40 Dilaudid Injection - IVPUSH 08/01/18 19:39 2 mg ONCE ONE Administration Sodium Chloride 1,000 mls @ 1,000 mls/hr 08/01/18 18:28 08/01/18 19:00 Normal Saline - IV 08/01/18 19:27 1,000 mls/hr ASDIR STA Administration Ketorolac Tromethamine 30 mg 08/01/18 18:28 08/01/18 19:20 Toradol Injection - IVPUSH 08/01/18 18:29 30 mg ONCE ONE Administration Medical Decision Making - Medical Decision Making 62 y/o M hx of HTN, B/L hip replacement, herniated disc, kidney stones (has had 5 times in 2018, each time stone passed on its own without intervention) was just discharged from ED 07/31 for 6 mm kidney stone at [facility], now returns due to LLQ pain from today and having difficulty voiding since around 1 PM today. Patient has upcoming appointment with his urologist, Dr. Zarate, on 08/15 ; states no surgery is planned. Patient has a strainer but has not noted any stone that has passed. Denies fever, chills, sob, cp, n/v, hematuria. Patient was able to void in ED without need for Herrera placement Patient given pain meds with improvement in pain Labs show no evidence of ELENA, mild leukocytosis of 11.3 noted; otherwise patient afebrile; UA with microscopic hematuria, but no infection US Pelvic/Renal: Renal dimensions are 13.2 x 5.3 x 5.7 cm for the right kidney and 13.9 x 6.8 x 7.5 cm for the left kidney. There is mild left hydronephrosis. There are no sonographically apparent solid renal masses or calculi. 3.6 x 2.5 x 2.8 cm lower pole left renal cyst noted. Prevoid bladder volume is 86.6 mL. No bladder calculi are seen. Postvoid bladder volume is 54 mL. Ureteral jets are not visualized at this time. No stones noted on ultrasound No significant amount of urine noted in bladder Urology - Dr. Zarate, paged to further discuss plan 08/01/18 21:[address] Zarate Spoke instead to Dr. Lopez, who stated no need for admission, can see patient this week for follow-up Stable for d/c 08/01/18 23:25 *DC/Admit/Observation/Transfer Diagnosis at time of Disposition: Renal colic on left side - Discharge Dispostion Disposition: HOME Condition at time of disposition: Improved - Referrals Referrals: Ronna Braswell MD [Primary Care Provider] - 3 days Edwar Lopez MD [Staff Physician] - Call tomorrow - Patient Instructions Printed Discharge Instructions: DI for Kidney Stones Additional Instructions: Thank you for choosing [facility]. It was a pleasure taking care of you. Please continue taking your Flomax and your current pain medications Call urologist, Dr. Lopez, tomorrow to make appointment for follow-up this week. Return to the Emergency Department if your symptoms worsen or persist, you have fever, shortness of breath, chest pain, severe abdominal pain, vomiting, not urinating at all or other concerning symptoms. - Post Discharge Activity
== END 2018-08-01 23:35 | disposition home or self-care (01) ==
LOC: JER 18:05
PROC: 3E033NZ Introduction of Analgesics, Hypnotics, Sedatives into Peripheral Vein, Percutaneous Approach (ICD-10-PCS; principal; 2018-08-01)
PROC: 3E0333Z Introduction of Anti-inflammatory into Peripheral Vein, Percutaneous Approach (ICD-10-PCS; 2018-08-01)
PROC: 3E0337Z Introduction of Electrolytic and Water Balance Substance into Peripheral Vein, Percutaneous Approach (ICD-10-PCS; 2018-08-01)
DX: N20.0 Calculus of kidney (principal)
CPT/HCPCS: 36415; 76775-TC; 76856-TC; 80053; 81003; 81015; 85025; 87086; 99284-25; J7030

== ENCOUNTER 2018-09-10 07:23 | Emergency (ER) | payer BC, OTHER ==
[2018-09-10 07:42] VITALS: BMI 39.9
--- NOTE | 2018-09-10 07:47 | PDOC ---
History of Present Illness - General Chief Complaint: Pain, Acute Stated Complaint: ABDOMINAL PAIN Time Seen by Provider: 09/10/18 07:47 History Source: Patient Exam Limitations: No Limitations - History of Present Illness Initial Comments: 62 yo M w a pmh of nephrolithiasis and chronic back pain presents to the ER with severe left sided flank pain radiating to the groin associated with nausea and vomiting. He reports he has had many kidney stones and this feels exactly like all of them. The pain is constant and non-stop, rated as 10/10 in intensity. The patient had a left kidney lithotripsy on August 03, but the patient still has pain in the left side now. He has not been able to urinate since last night but notes he has been drinking a good amount of water. Patient denies fever, chills, infections, hematuria, dysuria, diarrhea, or constipation. Urologist: Dr. Lincoln Allergy: Azithromycin Surgical: B/L Hip Replacement, lithotripsy Social: denies cigarettes, denies alcohol, denies recreational drugs PMD: Dr. Braswell Past History - Past Medical History Allergies/Adverse Reactions: Allergies Allergy/AdvReac Type Severity Reaction Status Date / Time azithromycin [From Zithromax] AdvReac Severe Nausea Verified 09/10/18 07:31 Home Medications: Ambulatory Orders Morphine *Sr* [Ms Contin -] 30 mg PO BID 10/24/17 Oxycodone HCl 5 mg PO BID 10/24/17 Gabapentin [Neurontin -] 300 mg PO HS 07/29/18 Amlodipine Besylate [Norvasc -] 10 mg PO DAILY #30 tablet 07/30/18 Oxycodone HCl 10 mg PO QID PRN #12 tablet MDD 4 09/10/18 Anemia: No Asthma: No Cancer: No Cardiac Disorders: No CVA: No COPD: No CHF: No Dementia: No Diabetes: No GI Disorders: No Disorders: Yes HTN: No Hypercholesterolemia: No Kidney Stones: Yes Liver Disease: No Seizures: No Thyroid Disease: No - Surgical History Abdominal Surgery: No Appendectomy: No Cardiac Surgery: No Cholecystectomy: No Lung Surgery: No Neurologic Surgery: No Orthopedic Surgery: Yes (2 HIP REPLACEMTS, 1 REVISION) - Suicide/Smoking/Psychosocial Hx Smoking History: Never smoked Have you smoked in the past 12 months: No Information on smoking cessation initiated: No Hx Alcohol Use: No Drug/Substance Use Hx: No Substance Use Type: None Hx Substance Use Treatment: No Review of Systems - Review of Systems Able to Perform ROS?: Yes Comments:: CONSTITUTIONAL: Absent: fever, no chills, no fatigue EYES: Absent: visual changes ENT: Absent: ear pain, no sore throat CARDIOVASCULAR: Absent: chest pain, no palpitations RESPIRATORY: Absent: cough, no SOB GI: Present: Abdominal pain, nausea, vomiting Absent: no constipation, no diarrhea GENITOURINARY: Absent: dysuria, no frequency, no hematuria MUSKULOSKELETAL: Present: back pain Absent: no arthralgia, no myalgia SKIN: Absent: rash NEURO: Absent: headache *Physical Exam - Vital Signs Last Vital Signs Temp Pulse Resp BP Pulse Ox 97.6 F 72 22 H 164/102 H 100 09/10/18 07:40 09/10/18 07:40 09/10/18 07:40 09/10/18 07:40 09/10/18 07:40 - Physical Exam Comments: GENERAL: The patient is standing over the bed and appears to be in severe pain. He is in significant distress. HEENT: Normocephalic, atraumatic. PERRL, EOM intact. CARDIOVASCULAR: Normal S1, S2. Regular rate and rhythm. PULMONARY: No evidence of respiratory distress. Lungs clear to auscultation bilaterally. No wheezing, rales or rhonchi. ABDOMEN: Mild LLQ TTP. + L sided CVA TTP. EXTREMITIES: Normal ROM in all four extremities. No gross deformities. SKIN: Warm, dry. No rash NEUROLOGICAL: No focal neurological deficits. Moderate Sedation - Procedure Monitoring Vital Signs: Procedure Monitoring Vital Signs Temperature 97.6 F 09/10/18 07:40 Pulse Rate 72 09/10/18 07:40 Respiratory Rate 22 H 09/10/18 07:40 Blood Pressure 164/102 H 09/10/18 07:40 O2 Sat by Pulse Oximetry (%) 100 09/10/18 07:40 ED Treatment Course - LABORATORY CBC & Chemistry Diagram: 09/10/18 08:06 09/10/18 08:06 Medical Decision Making - Medical Decision Making 62 yo M w a pmh of nephrolithiasis and chronic back pain presents to the ER with severe left sided flank pain radiating to the groin associated with nausea and vomiting. He reports he has had many kidney stones and this feels exactly like all of them. The pain is constant and non-stop, rated as 10/10 in intensity. The patient had a left kidney lithotripsy on August 03, but the patient still has pain in the left side now. He has not been able to urinate since last night but notes he has been drinking a good amount of water. VS: Hypertensive, tachypneic DDx IBNLT: Kidney stone, urosepsis, uti/pylo, Urinary obstruction, Diverticulitis Plan: Labs, Urine, US, Analgesia, IV hydration, Uro consult, +/- CTAP, re- assess. Dr. Coats: [phone] CT results: CT scan of the abdomen pelvis without oral and intravenous contrast Coronal and sagittal reformatted images were obtained Compared to prior CT scan of the abdomen pelvis dated 07/29/2018 The visualized lung base appears unremarkable and the heart is within normal limits in size. Evaluation of the liver, spleen, pancreas, gallbladder and both adrenal glands appear unremarkable. Right kidney is within normal limits in size with a 3 mm nonobstructing stone in its lower pole and likely a small cyst measuring 1.4 cm. Left kidney is within normal limits in size with stranding of the perinephric fat. There is a small cyst in its midportion, laterally measuring 1.5 cm and another one in its lower pole measuring 1.5 cm, as well. Mild left renal hydronephrosis and proximal hydroureter is present. There is no evidence of a ureteral stone down to the lower pelvis level where beam hardening artifacts from bilateral hip hardware are significantly limiting evaluation of the ureterovesical junctions and urinary bladder that is only partially distended. There are tiny hypodensities in the left and right hemipelvis suggestive of calcifications. There is no evidence of small bowel obstruction. Normal-appearing terminal ileum and appendix. Normal stool burden the colon with a few scattered diverticula and without evidence of acute diverticulitis. Visualized osseous structures appear intact with anterior spondylosis in the lower thoracic spine as well as at L3- L4 level. Bilateral hip prosthesis in satisfactory alignment. Impression: 3 mm nonobstructing stone again seen in the right renal lower pole. Small bilateral renal cysts Stranding of the left perinephric fat with mild left renal hydronephrosis and proximal hydroureter. Most distal portion of the left ureter could not be evaluated due to significant beam hardening artifacts from the presence of bilateral hip prosthesis. Cannot rule out a distal ureteral obstructing stone. Spoke with patient's urologist Dr. Lewis who states he can see patient this week. Will DC with analgesia and return precautions. *DC/Admit/Observation/Transfer Diagnosis at time of Disposition: Nephrolithiasis, Hydronephrosis, Renal colic on left side, Calculus of ureter - Discharge Dispostion Disposition: HOME Condition at time of disposition: Improved Decision to Admit order: No - Prescriptions Prescriptions: Oxycodone HCl 10 mg PO QID PRN #12 tablet MDD 4 PRN Reason: Pain Level 7 - 10 - Referrals Referrals: Ronna Braswell MD [Primary Care Provider] - Edwar Lopez MD [Staff Physician] - - Patient Instructions Printed Discharge Instructions: Kidney Stones (Alternative Therapy), Kidney Stones -- Adult Additional Instructions: You came into the ER for kidney stone pain. We gave you pain medications which made you feel better. It is extremely important for you to call Dr. Reeder office and schedule an appointment for this coming week. Drink plenty of water/fluids, avoid caffeine or alcohol Strain all urine for the next 1-2 days and save any stone for analysis Ibuprofen/naproxen/acetaminophen as needed for wvir-ie-ahwfmqyx pain. Use Motrin (also called Ibuprofen or Advil) 400 mg-600mg every 6 hours as needed for pain. If you have any stomach discomfort while taking Motrin, you can use TUMS to help. Oxycodone every 6 hours as needed for severe pain; Please do not drive or operate heavy machinery while on this medication because it can impair your judgement. This is a very addictive medication, do not take it unless you absolutely have to. Return to ER if you experience persistent pain/vomiting/fever/dehydration, difficulty urinating or inability to tolerate oral intake. Follow-up with your primary doctor within the next 2-3 days. Urologist follow up this week, referral given as well. (we will give you a list of urologists, but make sure they accept your insurance). Please bring your labs and imaging with you to your appointment. Print Language: HUNGARIAN - Post Discharge Activity
[2018-09-10] MEDS ORDERED: KETOROLAC TROMETHAMINE 30 MG/1 ML VIAL IVPUSH ONE (07:53)
[2018-09-10] MEDS ORDERED: KETOROLAC TROMETHAMINE 30 MG/1 ML VIAL ONE (07:59)
[2018-09-10] MEDS ORDERED: HYDROmorphone HCL CARPU-JECT 2 MG/1 ML DISP.SYRIN IVPUSH ONE ×3 (08:00→14:19)
[2018-09-10] MEDS ORDERED: HYDROmorphone HCl 2 MG/ML VIAL ONE ×3 (08:03→14:26)
[2018-09-10] MEDS ORDERED: SODIUM CHLORIDE 0.9% 500 ML INFUS.BAG IV ONE (08:12)
[2018-09-10 08:22] LABS: BASO % 0.6 % (0-2.0); EOS % 0.4 % (0-4.5); HEMATOCRIT 43.5 % (35.4-49); LYMPH % 11.5 % (8-40); MCH 29.6 pg (25.7-33.7); MCHC 34.4 g/dl (32.0-35.9); MONO % 5.7 % (3.8-10.2); NEUT % 81.8 % (42.8-82.8); PLATELET COUNT 227 K/MM3 (134-434); RBC 5.06 M/mm3 (4.00-5.60); WHITE BLOOD COUNT 7.7 K/mm3 (4.0-10.0)
[2018-09-10 08:40] LABS: ALBUMIN 4.4 g/dl (3.4-5.0); ALK PHOS 135 U/L (45-117); ANION GAP 7 MMOL/L (8-16); BILIRUBIN,TOTAL 1.1 mg/dL (0.2-1); BLOOD UREA NITROGEN 20 mg/dL (7-18); CALCIUM 9.3 mg/dL (8.5-10.1); CHLORIDE 106 mmol/L (98-107); CO2 26 mmol/L (21-32); CREATININE 1.1 mg/dL (0.55-1.3); GLUCOSE,RANDOM 102 mg/dL (74-106); LIPASE 144 U/L (73-393); POTASSIUM 4.3 mmol/L (3.5-5.1); SGOT/AST 13 U/L (15-37); SGPT/ALT 16 U/L (13-61); SODIUM 140 mmol/L (136-145); TOT PROT 7.9 g/dl (6.4-8.2)
[2018-09-10 09:11] LABS: URINE APPEARANCE CLEAR; URINE BILIRUBIN NEGATIVE (<2.0 mg/dL); URINE COLOR YELLOW; URINE GLUCOSE (UA) NEGATIVE (NEGATIVE); URINE KETONE NEGATIVE (NEGATIVE); URINE LEUK ESTERASE NEGATIVE (NEGATIVE); URINE NITRITE NEGATIVE (NEGATIVE); URINE PROTEIN 1+ (NEGATIVE); URINE UROBILINOGEN NEGATIVE mg/dL (0.2-1.0)
[2018-09-10 09:16] LABS: URINE HYALINE CAST 1 /lpf; URINE MUCUS MANY
--- NOTE | 2018-09-10 10:48 | PDOC ---
Attending Attestation - Resident Resident Name: Reza Chow - ED Attending Attestation I have performed the following: I have examined & evaluated the patient, The case was reviewed & discussed with the resident, I agree w/resident's findings & plan - HPI HPI: 09/10/18 10:44 62 YOM with h/o kidney stones s/p multiple lithotripsies, chronic back pain on opioids presenting with acute onset of left flank and groin pain last night, associated with difficulty urinating. no hematuria or dysuria, urgency or frequency. no n/v/d, no f/c. last lithotripsy by Dr Lopez in Aug 2018, uncomplicated and subsequently passed the stones compliant with his diet for kidney stones. - Physicial Exam PE: 09/10/18 10:44 NAD currently on my assessment. PERRL, EOMI, MMM, nl conjunctiva, anicteric; neck supple. lungs clear, RRR, abdomen soft Obese abdomen, LLQ and groin tenderness. No CVAT currently. COCHRAN x4, No peripheral edema. normal color for ethnicity, WWP. - Medical Decision Making 09/10/18 10:46 See HPI for details Vital signs reviewed, mildly hypertensive initially 2/2 pain. no fever. DDx kidney stone, obstructed stone, infection, UTI, pyelonephritis, electrolyte/ metabolic derangements. acute diverticulitis. Prior notes reviewed, including admissions, discharges and consultations. laboratory results and imaging reviewed, basic labs and lytes wnl, UA_neg for infection or blood EKG normal sinus rhythm, no interval abnormalities, narrow QRS, ST and T wave segments and morphology normal. Nonspecific T wave abnormalities ED course: dilaudid, toradol for analgesia, with effect noted. IVF hydration. Renal sono with 2 simple cysts on left kidney. Mild left renal hydro with increase, from prior. Partially distended bladder, no gross thickening. No jets were visulaized. No post void urine present. Borderline prostate. results discussed with pt and . will pursue CT lindsay to eval for location and extent of stone, suspecting obstructed ureterolithiasis given hydro worsening on the left and persistent sx. CT lindsay with left hydro/perinephric stranding noted, no def stone given artifact from hip arthroplasty. uro cs with Dr Lopez, will keep updates, and called during ED Stay results discussed. can followup closely as outpatient. rx oxycodone prn severe pain atop his regimen, nsaid for more moderate pain strain urine hydration, diet compliance and supportive care - renal colic instructions given , return precautions provided for worsening sx/infection. Pt informed of my clinical impression, treatment recommendations and disposition plan. All questions answered to patient's satisfaction and expressed understanding and comfort with this. Reasons for returning to the ED sooner discussed with the patient otherwise, follow up with primary care physician. At the time of discharge, the patient is alert, clinically improved, tolerating po and verbalizes understanding of instructions. Patient does not suffer from an acute life-threatening medical condition at this time she is safe for outpatient follow-up. urology f/u Dr Lopez. 09/10/18 13:50 *DC/Admit/Observation/Transfer Diagnosis at time of Disposition: Nephrolithiasis, Hydronephrosis, Renal colic on left side, Calculus of ureter - Discharge Dispostion Disposition: HOME Condition at time of disposition: Improved Decision to Admit order: No - Prescriptions Prescriptions: Oxycodone HCl 10 mg PO QID PRN #12 tablet MDD 4 PRN Reason: Pain Level 7 - 10 - Referrals Referrals: Edwar Lopez MD [Staff Physician] - Ronna Braswell MD [Primary Care Provider] - - Patient Instructions Printed Discharge Instructions: Kidney Stones (Alternative Therapy), Kidney Stones -- Adult Additional Instructions: You came into the ER for kidney stone pain. We gave you pain medications which made you feel better. It is extremely important for you to call Dr. Reeder office and schedule an appointment for this coming week. Drink plenty of water/fluids, avoid caffeine or alcohol Strain all urine for the next 1-2 days and save any stone for analysis Ibuprofen/naproxen/acetaminophen as needed for lxyi-ez-axmjqeur pain. Use Motrin (also called Ibuprofen or Advil) 400 mg-600mg every 6 hours as needed for pain. If you have any stomach discomfort while taking Motrin, you can use TUMS to help. Oxycodone every 6 hours as needed for severe pain; Please do not drive or operate heavy machinery while on this medication because it can impair your judgement. This is a very addictive medication, do not take it unless you absolutely have to. Return to ER if you experience persistent pain/vomiting/fever/dehydration, difficulty urinating or inability to tolerate oral intake. Follow-up with your primary doctor within the next 2-3 days. Urologist follow up this week, referral given as well. (we will give you a list of urologists, but make sure they accept your insurance). Please bring your labs and imaging with you to your appointment. Print Language: MALAWIAN - Post Discharge Activity Heart Score/ECG Review - ECG Impressions Normal ECG: Yes Comment:: 09/10/18 10:46 EKG normal sinus rhythm, no interval abnormalities, narrow QRS, ST and T wave segments and morphology normal. Nonspecific T wave abnormalities
--- NOTE | 2018-09-10 13:27 | EKG ---
Test Reason : Blood Pressure : / mmHG Vent. Rate : 057 BPM Atrial Rate : 057 BPM P-R Int : 212 ms QRS Dur : 104 ms QT Int : 428 ms P-R-T Axes : 021 015 010 degrees QTc Int : 416 ms SINUS BRADYCARDIA WITH 1ST DEGREE A-V BLOCK OTHERWISE NORMAL ECG WHEN COMPARED WITH ECG OF 21-JUN-2002 08:33, NO SIGNIFICANT CHANGE WAS FOUND Confirmed by Perry Silva MD ([id number]) on 09/10/2018 1:27:38 PM Referred By: Confirmed By:Perry Silva MD
[2018-09-10 14:24] VITALS: BP 152/90; PULSE 57; TEMP 97.3
== END 2018-09-10 14:51 | disposition home or self-care (01) ==
LOC: JER 07:23
PROC: 3E033NZ Introduction of Analgesics, Hypnotics, Sedatives into Peripheral Vein, Percutaneous Approach (ICD-10-PCS; principal; 2018-09-10)
PROC: 3E033NZ Introduction of Analgesics, Hypnotics, Sedatives into Peripheral Vein, Percutaneous Approach (ICD-10-PCS; 2018-09-10)
PROC: 3E033NZ Introduction of Analgesics, Hypnotics, Sedatives into Peripheral Vein, Percutaneous Approach (ICD-10-PCS; 2018-09-10)
PROC: 3E0333Z Introduction of Anti-inflammatory into Peripheral Vein, Percutaneous Approach (ICD-10-PCS; 2018-09-10)
DX: N13.2 Hydronephrosis with renal and ureteral calculous obstruction (principal); Z87.442 Personal history of urinary calculi; Z96.643 Presence of artificial hip joint, bilateral; M47.895 Other spondylosis, thoracolumbar region
CPT/HCPCS: 36415; 74176; 76775-TC; 76856-TC; 80053; 81003; 81015; 83690; 85025; 93005; 93010; 99283-25

== ENCOUNTER 2018-12-07 07:31 | Emergency (ER) | payer BC, OTHER ==
[2018-12-07 07:55] VITALS: BMI 40.4
--- NOTE | 2018-12-07 08:02 | PDOC ---
History of Present Illness - General Chief Complaint: Pain, Acute Stated Complaint: R/O STONES Time Seen by Provider: 12/07/18 07:44 History Source: Patient Exam Limitations: No Limitations - History of Present Illness Initial Comments: 12/07/18 08:01 63 yo M with a hx of nephrolithiasis (3 episodes in last 6 months, last one 2018 requiring lithotripsy) and HTN presents to the emergency department with LLQ pain that began abruptly this morning. Past History - Past Medical History Allergies/Adverse Reactions: Allergies Allergy/AdvReac Type Severity Reaction Status Date / Time azithromycin [From Zithromax] AdvReac Severe Nausea Verified 12/07/18 07:46 Home Medications: Ambulatory Orders Morphine *Sr* [Ms Contin -] 30 mg PO BID 10/24/17 Oxycodone HCl 5 mg PO BID 10/24/17 Gabapentin [Neurontin -] 300 mg PO HS 07/29/18 Amlodipine Besylate [Norvasc -] 10 mg PO DAILY #30 tablet 07/30/18 Amox-Clav 500-125 mg Tablet 500 mg PO TID 11/29/18 Flomax - 0.4 mg PO DAILY 11/29/18 Anemia: No Asthma: No Cancer: No Cardiac Disorders: No CVA: No COPD: No CHF: No Dementia: No Diabetes: No GI Disorders: No Disorders: Yes HTN: No Hypercholesterolemia: No Kidney Stones: Yes Liver Disease: No Seizures: No Thyroid Disease: No Other medical history: multiple kidney stones - Surgical History Abdominal Surgery: No Appendectomy: No Cardiac Surgery: No Cholecystectomy: No Lung Surgery: No Neurologic Surgery: No Orthopedic Surgery: Yes (2 HIP REPLACEMTS, 1 REVISION) - Suicide/Smoking/Psychosocial Hx Smoking History: Never smoked Have you smoked in the past 12 months: No Hx Alcohol Use: No Drug/Substance Use Hx: No Substance Use Type: None Hx Substance Use Treatment: No *Physical Exam - Vital Signs Last Vital Signs Temp Pulse Resp BP Pulse Ox 97.7 F 67 22 H 170/103 H 97 12/07/18 07:43 12/07/18 07:43 12/07/18 07:43 12/07/18 07:43 12/07/18 07:50 ED Treatment Course - LABORATORY CBC & Chemistry Diagram: 12/07/18 08:00 12/07/18 08:00 *DC/Admit/Observation/Transfer Diagnosis at time of Disposition: Renal colic on left side - Discharge Dispostion Disposition: HOME Decision to Admit order: No - Referrals Referrals: Ronna Braswell MD [Primary Care Provider] - Edwar Lopez MD [Staff Physician] - - Patient Instructions Printed Discharge Instructions: DI for Kidney Stones Additional Instructions: please see your urologist today or tomorrow for follow up care and management. please return if you have fever chills nausea vomiting or worsening pain. thank you. please use motrin and tylenol for pain management as directed on label when needed. thank you. - Post Discharge Activity
[2018-12-07] MEDS ORDERED: ACETAMINOPHEN 1000 MG/100 ML VIAL (NON FORMULARY) IVPB ONE ×2 (08:04→09:18)
[2018-12-07] MEDS ORDERED: SODIUM CHLORIDE 1,000 ML IV STA (08:04)
[2018-12-07] MEDS ORDERED: KETOROLAC TROMETHAMINE 60 MG/2 ML VIAL ONE (08:08)
[2018-12-07] MEDS ORDERED: KETOROLAC TROMETHAMINE 60 MG/2 ML VIAL IM ONE (08:08)
[2018-12-07 08:12] LABS: BASO % 0.9 % (0-2.0); EOS % 0.9 % (0-4.5); HEMATOCRIT 41.2 % (35.4-49); HEMOGLOBIN 13.8 GM/dL (11.7-16.9); LYMPH % 12.8 % (8-40); MCH 28.9 pg (25.7-33.7); MCHC 33.5 g/dl (32.0-35.9); MEAN CELL VOLUME 86.3 fl (80-96); MEAN PLT VOLUME 8.2 fl (7.5-11.1); MONO % 6.2 % (3.8-10.2); NEUT % 79.2 % (42.8-82.8); PLATELET COUNT 204 K/MM3 (134-434); RBC 4.78 M/mm3 (4.00-5.60); WHITE BLOOD COUNT 5.5 K/mm3 (4.0-10.0)
[2018-12-07 08:41] LABS: ALBUMIN 4.1 g/dl (3.4-5.0); BILIRUBIN,TOTAL 1.3 mg/dL (0.2-1); CALCIUM 8.6 mg/dL (8.5-10.1); CREATININE 0.9 mg/dL (0.55-1.3); POTASSIUM 4.8 mmol/L (3.5-5.1); TOT PROT 7.2 g/dl (6.4-8.2)
[2018-12-07] MEDS ORDERED: ACETAMINOPHEN INJECTION 100 ML IVPB ONE (09:27)
[2018-12-07 10:00] LABS: EPI CELLS 0.4 /HPF (0-5/HPF); PH,URINE 6.5 (5.0-8.0); URINE APPEARANCE CLEAR; URINE BACTERIA 0.3 /hpf (NEGATIVE); URINE BILIRUBIN NEGATIVE (NEGATIVE); URINE CASTS 0 /lpf (0-8); URINE COLOR YELLOW; URINE GLUCOSE (UA) NEGATIVE (NEGATIVE); URINE KETONE NEGATIVE (NEGATIVE); URINE LEUK ESTERASE NEGATIVE (NEGATIVE); URINE NITRITE NEGATIVE (NEGATIVE); URINE PROTEIN NEGATIVE (NEGATIVE); URINE RBC 1 /hpf (0-4); URINE UROBILINOGEN 0.2 mg/dL (0.2-1.0); URINE WBC 0 /hpf (0-5)
[2018-12-07 10:11] LABS: INR 1.04 (0.83-1.09); PROTHROMBIN TIME (PATIENT) 12.3 SEC (9.7-13.0)
--- NOTE | 2018-12-07 11:09 | PDOC ---
Attending Attestation - Resident Resident Name: Kristofer Lares - ED Attending Attestation I have performed the following: I have examined & evaluated the patient, The case was reviewed & discussed with the resident, I agree w/resident's findings & plan - HPI HPI: 12/07/18 11:06 63-year-old male with history of kidney stones requiring lithotripsy in the past presents with acute onset of left flank/groin pain that awoke him from sleep around 4 AM, associated with nausea, urinary urgency, but no gross hematuria or dysuria. Pain is identical to last kidney stones, recently had routine follow-up with Dr. Lopez and ultrasound per patient was normal. Has a known right kidney stone from prior imaging. Never required stents. - Physicial Exam PE: 12/07/18 11:07 Hypertensive, writhing near stretcher, otherwise alert and speaking full sentences Lungs are clear, heart is regular No CVA tenderness, slight left pelvic discomfort to palpation, patient initially refused exam. Palpable mass or hernia. - Medical Decision Making 12/07/18 11:09 63-year-old male with history of nephrolithiasis presents with acute onset left groin pain, question recurrence of stone, rule out hernia, needs exam to rule out testicular etiology when patient compliant Labs, urinalysis CT of the abdomen and pelvis Pain control Reassess
[2018-12-07 14:00] VITALS: TEMP 98.4
[2018-12-07 14:33] VITALS: BP 157/79; PULSE 49
== END 2018-12-07 14:40 | disposition home or self-care (01) ==
LOC: JER 07:31
PROC: 3E0233Z Introduction of Anti-inflammatory into Muscle, Percutaneous Approach (ICD-10-PCS; principal; 2018-12-07)
PROC: 3E0337Z Introduction of Electrolytic and Water Balance Substance into Peripheral Vein, Percutaneous Approach (ICD-10-PCS; 2018-12-07)
PROC: 3E033NZ Introduction of Analgesics, Hypnotics, Sedatives into Peripheral Vein, Percutaneous Approach (ICD-10-PCS; 2018-12-07)
DX: N23 Unspecified renal colic (principal); Z87.442 Personal history of urinary calculi; I10 Essential (primary) hypertension
CPT/HCPCS: 36415; 74018-TC-FY; 74176-TC; 80053; 81003; 85025; 85610; 87086; 99283-25; J0131; J7030

== ENCOUNTER 2018-12-18 11:14 | Day surgery (SDC) | payer BC, OTHER | END 2018-12-18 18:00 | disposition home health service (06) | LOC: JASU-SURG 11:14 ==